=== PATIENT | male | born 1985 | race Caucasian/White ===

== ENCOUNTER 2017-10-06 19:51 | Emergency (ER) | payer OTHER ==
[2017-10-06] MEDS ORDERED: LIDOCAINE WITH 8.4% SOD BICARB 3 ML DISP.SYRIN. (20:28)
[2017-10-06] MEDS: LIDOCAINE WITH 8.4% SOD BICARB 3 ML DISP.SYRIN. INJ (20:32)
[2017-10-06] MEDS: HYDROcodone/APAP 5/325MG 1 TAB TABLET PO (20:32)
== END 2017-10-06 20:52 | disposition home or self-care (01) ==
LOC: ER 19:51
DX: L02.411 Cutaneous abscess of right axilla (principal)
CPT/HCPCS: 10060; 99283-25